=== PATIENT | male | born 1950 | race Caucasian/White ===

== ENCOUNTER → 2017-10-30 16:07 | Outpatient (CLI) | payer MEDICARE, SELFPAY ==
[2017-10-30 16:52] LABS: Abs Immature Grans 0.04 k/cumm (0.0-0.09); Absolute Basophil Count 0.02 k/cumm (0.0-0.2); Absolute Eosinophil Count 0.19 k/cumm (0.0-0.7); Absolute Lymphocyte Count 2.19 k/cumm (1.2-3.4); Absolute Monocyte Count 0.78 k/cumm (0.11-0.7); Absolute Neutrophil Count 4.11 k/cumm (1.2-6.7); Basophils % 0.3; Eosinophils % 2.6; HCT 40.3 % (40.0-50.0); HGB 13.4 g/dL (13.5-17.5); Immature Grans % 0.5; Lymphocytes % 29.9; Mean Corp. HGB Concentration 33.3 g/dL (32.0-36.0); Mean Corpuscular Hemoglobin 30.5 pg (27.0-33.0); Mean Corpuscular Volume 91.8 fL (80-95); Mean Platelet Volume 9.4 fL (8.0-11.0); Monocytes % 10.6; Neutrophils % 56.1; Platelet Count 297 x1000/uL (130-400); RBC 4.39 m/cumm (4.50-6.00); RBC Distribution Width 13.3 % (11.8-14.1); White Blood Cell Count 7.33 k/cumm (4.4-10.8)
[2017-10-30 17:32] LABS: ALT 27 U/L (12-78); AST 24 U/L (15-37); Alkaline Phosphatase 95 U/L (46-116); Anion Gap 7.4 mmol/L (3-11); BUN 24 mg/dL (7-18); Bilirubin, Total 0.3 mg/dL (0.2-1.0); CO2 27.6 mmol/L (21.0-32.0); CREATININE 1.09 mg/dL (0.70-1.30); Calcium 9.3 mg/dL (8.5-10.1); Chloride 102 mmol/L (98-107); Glucose 89 mg/dL (70-100); Potassium 4.2 mmol/L (3.5-5.1); Sodium 137 mmol/L (136-145); TSH (W/Ref FT4) 1.89 uIU/mL (0.358-3.74); Total Protein 8.5 g/dL (6.4-8.2)
== END ==
PROVIDERS: PCP Family Medicine; Visit Provider Internal Medicine
DX: D64.9 Anemia, unspecified (principal); I10 Essential (primary) hypertension; R55 Syncope and collapse; M54.9 Dorsalgia, unspecified; S06.9X9A Unspecified intracranial injury with loss of consciousness of unspecified duration, initial encounter
CPT/HCPCS: 36415; 80053; 84443; 85025

== ENCOUNTER 2019-08-04 10:53 | Emergency (ER) | payer MEDICARE, OTHER, SELFPAY ==
[2019-08-04 10:57] VITALS: BP 159/84; PULSE 155; RESP 16; TEMP 36.6; O2SAT 97
--- NOTE | 2019-08-04 11:00 | DI.CT_ITS ---
EXAM: CT HEAD CERVICAL SPINE WO CLINICAL HISTORY: seizure, fall, trauma, altered. TECHNIQUE: Imaging Protocol: Axial computed tomography images with coronal and sagittal reformatted images were created and reviewed COMPARISON: No exams were available for comparison FINDINGS: Head CT Ventricles and Extra axial spaces: Normal in size and morphology for the patient's age. Hemorrhage: None. Cerebral parenchyma: Mild atrophy. Old infarct in the right temporoparietal region and right posteri or parietal region. No acute infarct is seen.. Midline shift: None. Brainstem/Cerebellum: Normal. Calvarium: Normal. Visualized Paranasal sinuses/Mastoids: Clear. 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 No acute abnormality. FINDINGS: Cervical Spine CT BONES: There is an old fracture seen tract extending transversely through the dens. There is a appar ent fusion between the anterior arch of C1 and the dens. Vertebral body heights are maintained. Deg enerative disc changes and facet degenerative changes are seen. There is some straightening of justin l cervical lordosis. There is no evidence of acute fracture. SOFT TISSUES: No paraspinal hematoma. The airway appears intact. No pneumothorax is seen at the nick g apices. IMPRESSION: Old dens fracture. Degenerative changes. No acute abnormality. RADIATION DOSE DELIVERED: DATA REPOSITORY: All CT scans at this facility are submitted to the National Radiology Data Registry (NRDR) Dose Index Registry (DIR) with the [employer] (ACR). RADIATION OPTIMIZATION: All CT scans at this facility use at least one of these dose optimization te chniques: automated exposure control; mA and/or kV adjustment per patient size (includes targeted exa ms where dose is matched to clinical indication); or iterative reconstruction.
--- NOTE | 2019-08-04 11:05 | ED.GENADUL_ITS ---
Discharge Plan Disposition Patient Disposition: HOME Condition: Stable Discharge Details Chief Complaint: Seizure Clinical Impression: Witnessed seizure-like activity, Elevated serum creatinine, Facial laceration Primary Care Provider: [facility] ED Provider: Javi Reeder Home Meds and New Rx's Prescriptions: New levetiracetam [Keppra] 500 mg tablet 500 mg PO BID Qty: 60 RF: 1 Continued sertraline 25 mg tablet 100 mg PO DAILY RF: 0 olanzapine 5 MG tablet 5 mg PO DAILY Qty: 90 RF: 4 Discharge Instructions Instructions: Skin Adhesive Care (ED), Facial Laceration (ED), Seizures After Traumatic Brain Injury (ED) Additional Instructions: Your serum creatinine was slightly elevated. This indicates kidney injury. Please be sure to stay hydrated and drink plenty of clear fluids. Please take seizure medication as prescribed. No operating heavy machinery or motor vehicles until cleared to do so by your primary care physician or neurologist. Please contact your primary care physician to arrange follow-up. Please follow-up with neurology. Return to the ER for any worsening or new concerning symptoms. Referrals: [facility] [Primary Care Provider] - Giana Miranda MD [ [facility] STAFF PHYSICIAN] - Discharge Data Discharge Date/Time-TO BE ENTERED AT DEPARTURE: 08/04/19 13:30 Medical Decision Making 11:10 --patient was seen immediately on arrival. Patient is a 68-year-old male with history of traumatic brain injury who apparently had seizure activity at grocery store, was found by EMS unresponsive, subsequently now responsive but quite confused. There is signs of trauma on his face with laceration and dried blood. I am concerned about acute life-threatening intracranial traumatic hemorrhage versus postictal state. Plan to obtain stat CT imaging of his head and cervical spine considering unreliable exam and history and may have injured C-spine. Patient is anxious, agitated and uncooperative. I will give Ativan 1 mg IV as an anxiolytic. I reviewed past medical record, clinic visit note from 12/31/2018 that notes history of traumatic brain injury. I called and spoke with physician covering for clinic who notes additional history of hypertension. No known history of seizures. Tetanus is not up-to-date per record. Will give Boostrix. 12:19 --screening ECG was reviewed and interpreted by me: Sinus tachycardia 115 bpm, first-degree AV block with WV interval of 270, no STEMI, no delta wave, no signs of Brugada. Patient reassessed multiple times and seems to be more alert and less confused. Nursing spoke with the patient's sister who notes baseline confusion status post TBI. She also notes remote seizure related to TBI but has not had any seizure in the past couple years. Is not on an antiepileptic. CT of the head was interpreted by radiology: IMPRESSION:Old right temporal and parietal infarcts. No acute abnormality. CT of the cervical spine was interpreted by radiology: IMPRESSION: Old dens fracture. Degenerative changes. No acute abnormality. I called and spoke with Dr. Miranda, neurology, and discussed ED presentation and course. She reviewed head CT and notes findings likely related to prior trauma and and not in typical CVA distribution. She agrees with initiating Keppra and will be happy to see the patient in follow-up in clinic. Labs reviewed and mild anion gap elevation, consistent with seizure. His creatinine is elevated at 1.58, this is increased from prior. This will need to be repeated and followed by PCP. HPI General Mode of arrival: EMS . Date/Time Provider Initiated Documentation: 08/04/19 11:03 . Limitations to Documentation: no limitations . Information obtained by: EMS . HPI Narrative: 68-year-old male presents with EMS after witnessed seizure activity grocery store, initially found by EMS to be unresponsive tachycardic but otherwise hemodynamically stable, he was noted to be more responsive but confused in route to ED. Patient arrives confused. History and review of systems limited secondary to altered mental status. Related Data Home Medications Medication Instructions Recorded Confirmed olanzapine 5 mg PO DAILY #90 tab-cap 01/23/17 12/31/18 sertraline 25 mg tablet 100 mg PO DAILY tab-cap 12/31/18 levetiracetam [Keppra] 500 mg PO BID #60 tab 08/04/19 Previous Rx's Medication Instructions Recorded olanzapine 5 mg PO DAILY #90 tab-cap 01/23/17 levetiracetam [Keppra] 500 mg PO BID #60 tab 08/04/19 Allergies Allergy/AdvReac Type Severity Reaction Status Date / Time No Known Allergies Allergy Unverified 12/31/18 16:02 General Stated Complaint: Seizure SUNDEEP: 3 Review of Systems Unobtainable due to mental condition [facility] Medical History (Updated 08/04/19 @ 13:09 by Javi Reeder MD) Traumatic brain injury (Inactive) Surgical History PROCEDURES GASTRIC LAP BANDING STRESS TEST 02/13/16 Family History Mother Dementia Depression Neoplasm SKIN Father Essential hypertension Heart disease Sister Essential hypertension Dementia Hyperlipidemia Neoplasm SKIN Sister No problems noted. Brother No problems noted. Brother Depression Grandfather Neoplasm LUNG Grandfather No problems noted. Grandmother Dementia Neoplasm SKIN Grandmother Depression Son Depression Son No problems noted. Social History Smoking/Tobacco Use Status: Never Alcohol Intake: never Drug use: Never Substance use type: does not use Exam Const General: uncooperative Orientation: alert and confused Limitations: altered mental status HENMT Mouth: moist mucous membranes Eyes EOM: EOM intact bilaterally Neck Neck: trachea midline and supple Resp Auscultation: clear to auscultation bilaterally, no rales, no rhonchi and no wheezes Cardio Jugular venous pressure: no JVD Rate: tachycardic Rhythm: regular rhythm GI Palpation: soft, not firm, no guarding, no masses, not rigid and nontender Skin Other: Laceration to face, just superior to left upper lip with dried blood on face Neuro General: patient alert, patient awake and tone normal Cognition: abnormal cognition Speech: other (repetitive) Motor: muscle tone normal throughout Extrem General: no edema Psych Appearance: grossly normal Mental Status: mental status grossly normal Speech and Movement: speech and movement normal Course Vital Signs Vital signs: Vital Signs Temperature 36.6 C 08/04/19 10:57 Pulse 155 H 08/04/19 10:57 Respiratory Rate 16 08/04/19 10:57 Blood Pressure 159/84 H 08/04/19 10:57 Pulse Oximetry 97 08/04/19 10:57 Temperature 36.6 C 08/04/19 10:57 Temperature Source Tympanic 08/04/19 10:57 Pulse 155 H 08/04/19 10:57 Respiratory Rate 16 08/04/19 10:57 Respiratory Effort Non-Labored 08/04/19 11:01 Blood Pressure 159/84 H 08/04/19 10:57 Blood Pressure Position Sitting 08/04/19 10:57 Pulse Oximetry 97 08/04/19 10:57 Oxygen Delivery Method Room Air 08/04/19 10:57 Oxygen Flow Rate 0 08/04/19 10:57 Pain Level 0 08/04/19 10:57
[2019-08-04 11:16] LABS: Abs Immature Grans 0.12 k/cumm (0.0-0.09); Absolute Basophil Count 0.03 k/cumm (0.0-0.2); Absolute Eosinophil Count 0.27 k/cumm (0.0-0.7); Absolute Lymphocyte Count 4.25 k/cumm (1.2-3.4); Absolute Monocyte Count 0.87 k/cumm (0.11-0.7); Absolute Neutrophil Count 5.13 k/cumm (1.2-6.7); Basophils % 0.3; Eosinophils % 2.5; HCT 40.7 % (40.0-50.0); HGB 13.8 g/dL (13.5-17.5); Immature Grans % 1.1 %; Lymphocytes % 39.8; Mean Corp. HGB Concentration 33.9 g/dL (32.0-36.0); Mean Corpuscular Hemoglobin 31.3 pg (27.0-33.0); Mean Corpuscular Volume 92.3 fL (80-95); Mean Platelet Volume 9.3 fL (8.0-11.0); Monocytes % 8.2; Neutrophils % 48.1; Platelet Count 342 x1000/uL (130-400); RBC 4.41 m/cumm (4.50-6.00); RBC Distribution Width 14.2 % (11.8-14.1); White Blood Cell Count 10.67 k/cumm (4.4-10.8)
[2019-08-04] MEDS: LORazepam 2 MG/ML VIAL 1 MG IVP (11:17)
[2019-08-04 11:29] LABS: ALT 36 U/L (16-63); AST 32 U/L (15-37); Albumin 3.8 g/dL (3.4-5.0); Alkaline Phosphatase 106 U/L (46-116); Anion Gap 18.4 mmol/L (3-11); BUN 21 mg/dL (7-18); Bilirubin, Total 0.4 mg/dL (0.2-1.0); CO2 19.6 mmol/L (21.0-32.0); CREATININE 1.58 mg/dL (0.70-1.30); Calcium 9.2 mg/dL (8.5-10.1); Chloride 101 mmol/L (98-107); Estimated GFR 43.83 (mL/min/1.73m2); Glucose 143 mg/dL (74-106); Magnesium 2.2 mg/dL (1.8-2.4); Potassium 3.6 mmol/L (3.5-5.1); Sodium 139 mmol/L (136-145); Total Protein 8.7 g/dL (6.4-8.2)
[2019-08-04 11:46] LABS: ETHANOL BLOOD < 3.0 mg/dL (<3)
[2019-08-04 12:05] LABS: *AMPHETAMINES SCREEN URINE Negative (Negative); *BARBITURATES SCREEN URINE Negative (Negative); *BENZODIAZEPINES SCREEN URINE Negative (Negative); Cannabinoids THC Negative (Negative); Cocaine Screen,Urine Negative (Negative); METHADONE URINE SCREEN Negative (Negative); OPIATES URINE SCREEN Negative (Negative)
[2019-08-04 12:06] LABS: Tricyclic Antidepressants Negative (Negative)
[2019-08-04] MEDS: levETIRAcetam 1,000 MG in Normal Saline 100 ML 400 MG IVPB (12:06)
[2019-08-04 13:29] VITALS: BP 103/73; PULSE 93; RESP 20; TEMP 36.6; O2SAT 93
--- NOTE | 2019-08-04 15:39 | NUR.NOTE ---
Nursing Note: Referral faxed to PCP for follow up. Patricia Cotto.
--- NOTE | 2019-08-05 11:40 | PDOC.ERCMACT ---
- If Service Date Differs Date of service: 08/05/19 Time of Service: 11:40 Care Management Activity Note At the request of ED provider, CM coordinates a referral to [facility] neurology.
== END 2019-08-04 13:30 | disposition home or self-care (01) ==
PROVIDERS: Emergency Provider Student in an Organized Health Care Education/Training Program; PCP Family Medicine
DX: S01.81XA Laceration without foreign body of other part of head, initial encounter (principal); W22.09XA Striking against other stationary object, initial encounter; R56.1 Post traumatic seizures; Z87.820 Personal history of traumatic brain injury; R94.4 Abnormal results of kidney function studies; I10 Essential (primary) hypertension
CPT/HCPCS: 36415; 80053; 80307; 90471; 93005; 96365; 96375; 99285; 70450; 72125; 80320; 83735; 85025; 93010; J1953; J2060

== ENCOUNTER → 2019-08-18 13:41 | Outpatient (BNVA) | payer MEDICARE, OTHER, SELFPAY | PROVIDERS: PCP Family Medicine; Referring Provider Family Medicine; Visit Provider Psychiatry & Neurology Neurology | DX: R56.9 Unspecified convulsions (principal); Z87.820 Personal history of traumatic brain injury; I10 Essential (primary) hypertension | CPT/HCPCS: 99204; 99215 ==

== ENCOUNTER 2021-08-12 17:45 | Emergency (ER) | payer MEDICARE, MEDICAID, SELFPAY ==
[2021-08-12] VITALS (29 sets, daily range): BP systolic 94–115; BP diastolic 56–82; PULSE 70–90; RESP 16–30; TEMP 36.5; O2SAT 92–98
--- NOTE | 2021-08-12 17:45 | RT.EKG_ITS ---
APPROVED REPORT Exam: Resting ECG Reason for Exam: hypotension Patient Location: E HR:81 bpm ECG Measurements Heart Rate [address] 337 P 27 QRSd 91 QRS 60 QT 360 T 18 QTc 417 Conclusion Sinus rhythm...normal P axis, V-rate 60- [address] interval...CT >220, V-rate 50- 90 Probable left atrial enlargement...P >50mS, <-0.10mV V1 sinus rhythm, first degree block, normal axis, non ichemic
--- NOTE | 2021-08-12 18:45 | DI.CT_ITS ---
Exam(s) CT HEAD WO EXAM: CT HEAD WO CLINICAL HISTORY: syncope, LOC. TECHNIQUE: Imaging Protocol: Axial computed tomography images with coronal and sagittal reformatted images were created and reviewed COMPARISON: CT CT HEAD CERVICAL SPINE WO from 08/04/2019 FINDINGS: There are no acute skull fractures nor fluid the visualized paranasal sinuses. There is surgical ma terial in the anterior wall of the right maxillary sinus as well is in the superior lateral wall of t he orbit. No acute orbital fractures. There is no evidence of intracranial hemorrhage, mass effect, or shift of midline structures. There are no extra-axial fluid collections. The ventricles are not enlarged or shifted and there is no blo od within the ventricular system nor within the basal cisterns. Previously described nonacute infarct in the right temporoparietal region again noted. No obvious ne w acute infarcts evident. IMPRESSION: Non acute right temporal-parietal infarcts. No obvious acute infarcts. If clinically indicated follow-up MRI with diffusion imaging can be performed RADIATION DOSE DELIVERED: 818.64mGy.cm Total DLP DATA REPOSITORY: All CT scans at this facility are submitted to the National Radiology Data Registry (NRDR) Dose Index Registry (DIR) with the [employer] (ACR). RADIATION OPTIMIZATION: All CT scans at this facility use at least one of these dose optimization te chniques: automated exposure control; mA and/or kV adjustment per patient size (includes targeted exa ms where dose is matched to clinical indication); or iterative reconstruction.
--- NOTE | 2021-08-12 18:53 | DI.RAD_ITS ---
Exam(s) XR PORTABLE CHEST AP EXAM: XR PORTABLE CHEST AP CLINICAL HISTORY: syncope. TECHNIQUE: 2D digital imaging was performed. COMPARISON: No exams were available for comparison FINDINGS: Single AP portable view. Heart size is upper normal. The mediastinum is not widened. Lungs are clear. No infiltrates nor obvious pleural effusions. Healed right 5th rib fracture noted. IMPRESSION: No acute pulmonary findings on this single AP portable view of the chest. DATA REPOSITORY: RADIATION DOSE DELIVERED: All CT scans at this facility use at least one of these dose optimization techniques: automated exposure control; mA and/or kV adjustment per patient size (includes targeted e xams where dose is matched to clinical indication); or iterative reconstruction.
--- NOTE | 2021-08-12 19:08 | ED.GENADUL_ITS ---
Discharge Plan Disposition Patient Disposition: HOME Condition: Improving Discharge Details Chief Complaint: Dizzy/Sync Clinical Impression: Fall, First degree heart block Primary Care Provider: [facility] ED Provider: Jignesh Redman Home Meds and New Rx's Prescriptions: No Action multivitamin Tablet 1 tab PO DAILY levetiracetam [Keppra] 500 mg tablet 500 mg PO BID Qty: 60 1RF olanzapine 5 mg tablet 5 mg PO DAILY Qty: 90 4RF sertraline 100 mg tablet 100 mg PO DAILY Qty: 90 3RF methylphenidate HCl [Ritalin] 5 mg tablet 5 mg PO DAILY MDD 1 tab Qty: 30 0RF cholecalciferol (vitamin D3) [Vitamin D3] 125 mcg (5,000 unit) Tablet 5,000 unit PO DAILY vitamin E 400 unit Tablet 400 unit PO DAILY Discharge Instructions Instructions: Heart Block (ED) Additional Instructions: Please be seen by your primary care doctor, please follow-up with cardiology, please return to the emergency department for any worsening symptoms. Medical Decision Making 70-year-old male denies physical history endorses loss of balance/dizziness and possible syncope in the shower, fell backwards unclear LOC, confusion after event with return to baseline status per , no chest pain or shortness of breath no external signs of trauma, patient is alert and oriented moving all extremities out of her strength upper and lower extremities, speech intact, EKG showing first-degree heart block, nonischemic, did not eat much today, consider dehydration versus electrolyte abnormality versus relative hypoglycemia versus must consider ACS versus unlikely PE versus less likely stroke. Given age and presentation will obtain labs and imaging fluids close reassessment 21: 12 patient resting comfortably no acute distress labs and imaging unremarkable. Feeling better fluids and rest. First-degree heart block noted on EKG will be given cardiology referral HPI General Date/Time Provider Initiated Documentation: 08/12/21 18:43 . HPI Narrative: 70-year-old male denies past medical history endorses falling in the shower, daughter states he was get a pass out lost his balance fell backwards hit his head unclear whether he lost of consciousness, no chest pain or shortness of breath, patient did eat late this morning, only had some milk. Feels back to normal at this time. Related Data Home Medications Medication Instructions Recorded Confirmed multivitamin 1 tab PO DAILY 08/18/19 08/12/21 levetiracetam 500 mg tablet 500 mg PO BID #60 tabs 11/09/20 08/12/21 (Keppra) olanzapine 5 mg tablet 5 mg PO DAILY #90 tab-caps 11/09/20 08/12/21 sertraline 100 mg tablet 100 mg PO DAILY #90 tabs 11/09/20 08/12/21 methylphenidate HCl 5 mg tablet 5 mg PO DAILY #30 tabs 03/14/21 08/12/21 (Ritalin) cholecalciferol (vitamin D3) 125 5,000 unit PO DAILY 08/12/21 08/12/21 mcg (5,000 unit) tablet (Vitamin D3) vitamin E 400 unit tablet 400 unit PO DAILY 08/12/21 08/12/21 Previous Rx's Medication Instructions Recorded levetiracetam 500 mg tablet 500 mg PO BID #60 tabs 11/09/20 (Keppra) olanzapine 5 mg tablet 5 mg PO DAILY #90 tab-caps 11/09/20 sertraline 100 mg tablet 100 mg PO DAILY #90 tabs 11/09/20 methylphenidate HCl 5 mg tablet 5 mg PO DAILY #30 tabs 03/14/21 (Ritalin) Allergies Allergy/AdvReac Type Severity Reaction Status Date / Time No Known Allergies Allergy Unverified 08/12/21 18:01 General Stated Complaint: Dizzy/Sync SUNDEEP: 3 Review of Systems Narrative: Review of Systems Constitutional: negative Eyes: negative ENT: negative Cardiovascular: Possible syncope Respiratory: negative Gastrointestinal: negative : negative Musculoskeletal: negative Skin: negative Neurologic: Dizziness Psych: negative PFSH All Active Problems (Updated 08/12/21 @ 21:14 by Jignesh Redman MD) Fall (Acute) First degree heart block (Acute) Traumatic brain injury (Acute) Seizure (Acute) Medical History (Updated 08/12/21 @ 21:14 by Jignesh Redman MD) Depression History of suicidal ideation Hypertension Surgical History PROCEDURES GASTRIC LAP BANDING STRESS TEST 02/13/16 Family History Mother Dementia Depression Neoplasm SKIN Father Essential hypertension Heart disease Sister Essential hypertension Dementia Hyperlipidemia Neoplasm SKIN Sister No problems noted. Brother No problems noted. Brother Depression Grandfather Neoplasm LUNG Grandfather No problems noted. Grandmother Dementia Neoplasm SKIN Grandmother Depression Son Depression Son No problems noted. 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 Seatbelt use: always Do you feel safe at home: Yes Do you feel safe in your relationship?: Yes Exam Narrative Exam Narrative: Physical Examination General: alert, awake, cooperative, resting comfortably, no acute distress HEENT: normocephalic, atraumatic; PERRL, EOM intact, conjunctiva normal; no nasal discharge; moist mucous membranes, oral and pharyngeal mucosa normal, tolerating secretions Neck: supple, trachea midline; full ROM Chest: normal to inspection Respiratory: normal respiratory effort, speaking in full sentences, clear to auscultation, no wheezing, rales or rhonchi Cardiac: regular rate, regular rhythm, S1S2 intact, no murmurs rubs or gallops GI: abdomen soft, non-tender, non-distended; no palpable mass or hepatosplenomegaly Skin: no lesions, rashes or trauma appreciated Neuro: AAOx3, normal speech, moving all extremities; 5 out of 5 strength upper and lower extremities, cranial nerves II through XII intact, normal speech Extremities: Moving all extremities pelvis stable, no signs of trauma Psych: Appropriate mood and affect Course Vital Signs Vital signs: Vital Signs Temperature 36.5 C 08/12/21 17:47 Pulse 82 08/12/21 17:47 Respiratory Rate 20 08/12/21 17:47 Blood Pressure 106/75 08/12/21 17:47 Pulse Oximetry 95 08/12/21 17:47 Temperature 36.5 C 08/12/21 17:47 Temperature Source Temporal Artery Scan 08/12/21 17:47 Pulse 82 08/12/21 17:47 Respiratory Rate 20 08/12/21 17:47 Respiratory Effort 08/12/21 17:54 Blood Pressure 106/75 08/12/21 17:47 Blood Pressure Position Sitting 08/12/21 17:47 Pulse Oximetry 95 08/12/21 17:47 Oxygen Delivery Method Room Air 08/12/21 17:47 Oxygen Flow Rate 0 08/12/21 17:47 Pain Level 0 08/12/21 17:47
[2021-08-12 19:49] LABS: Abs Immature Grans 0.12 10^3/uL (0.0-0.06); Absolute Basophil Count 0.03 10^3/uL (0.0-0.2); Absolute Monocyte Count 0.63 10^3/uL (0.1-0.8); Absolute Neutrophil Count 8.16 10^3/uL (1.2-6.7); Basophils % 0.3; Eosinophils % 2.8; HCT 38.4 % (40.0-50.0); HGB 12.9 g/dL (13.5-17.5); Immature Grans % 1.1; Lymphocytes % 13.2; MCH 30.8 pg (27.0-33.0); MCHC 33.6 % (32.0-36.0); MCV 92 fL (80-95); MPV 10.2 fL (8.0-11.0); Monocytes % 5.9; Neutrophils % 76.7; Platelet Count 245 10^3/uL (130-400); RBC 4.19 10^6/uL (4.36-5.78); RDW 13.3 % (11.8-14.1); RDW-SD 44.8 fL; WBC 10.64 10^3/uL (4.4-10.8)
[2021-08-12 20:05] LABS: ALT 30 U/L (16-63); AST 35 U/L (15-37); Albumin 3.1 g/dL (3.4-5.0); Alkaline Phosphatase 70 U/L (46-116); Anion Gap 7.4 mmol/L (3-11); BUN 17 mg/dL (7-18); Bilirubin, Total 0.3 mg/dL (0.2-1.0); CO2 24.6 mmol/L (21.0-32.0); CREATININE 1.2 mg/dL (0.70-1.30); Calcium 8.5 mg/dL (8.5-10.1); Chloride 108 mmol/L (98-107); Estimated GFR 59.86 (mL/min/1.73m2); Glucose 99 mg/dL (74-106); Potassium 4.9 mmol/L (3.5-5.1); Sodium 140 mmol/L (136-145); Total Protein 7.5 g/dL (6.4-8.2); Troponin I < 50 ng/L (<or=60)
--- NOTE | 2021-08-12 20:53 | DI.VRAD_ITS ---
PROCEDURE INFORMATION: Exam: CT Head Without Contrast Exam date and time: 08/12/2021 8:21 PM Age: 70 years old Clinical indication: Other: Syncope, loc; Patient HX: Syncope, loc TECHNIQUE: Imaging protocol: Computed tomography of the head without contrast. Radiation optimization: All CT scans at this facility use at least one of these dose optimization techniques: automated exposure control; mA and/or kV adjustment per patient size (includes targeted exams where dose is matched to clinical indication); or iterative reconstruction. COMPARISON: CT HEAD CERVICAL SPINE WO 08/04/2019 11:17 AM FINDINGS: Brain: No acute intracranial hemorrhage, mass-effect, midline shift, or extra-axial collection is seen. There are small old right frontoparietal infarcts, image 35 of series 2, also seen on the prior exam. Otherwise, the parson-white matter differentiation appears preserved. There is symmetric parenchymal volume loss. Cerebral ventricles: The ventricular system and basilar cisterns appear appropriate in size and configuration given the degree of parenchymal volume loss. Paranasal sinuses: The visualized paranasal sinuses appear well-aerated. Mastoid air cells: The mastoid air cells appear well-aerated. Auditory system: The middle ear cavities appear clear. Vasculature: There is atherosclerotic calcification within the intracranial portion of the internal carotid arteries bilaterally. Bones/joints: The bony calvarium appears intact. No depressed skull fracture is seen. There is surgical material transfixing old right orbital and maxillary wall fractures. Soft tissues: No significant scalp lesion is seen. IMPRESSION: 1. No acute intracranial abnormality seen. 2. Small old right frontotemporal infarcts. Dictated and Authenticated by: Virgilio Mari MD. Ordering:RIVER Egan MD
--- NOTE | 2021-08-12 20:57 | DI.VRAD_ITS ---
PROCEDURE INFORMATION: Exam: XR Chest Exam date and time: 08/12/2021 8:13 PM Age: 70 years old Clinical indication: Other: Syncope TECHNIQUE: Imaging protocol: XR of the chest. Views: 1 view. COMPARISON: CT HEAD CERVICAL SPINE WO 08/04/2019 11:17 AM FINDINGS: Limitations: Patient positioning is lordotic. Tubes, catheters and devices: There is a lap band device projecting in the region of the gastroesophageal junction. Lungs: No pulmonary consolidation is seen. Pleural spaces: No pleural effusion or pneumothorax is demonstrated. Heart/Mediastinum: Heart size is normal. Bones/joints: There is an old right posterior 5th rib fracture. IMPRESSION: No active disease is seen in the chest. Dictated and Authenticated by: Virgilio Mari MD. Ordering:RIVER Egan MD
== END 2021-08-12 21:24 | disposition home or self-care (01) ==
LOC: ER 21:20
PROVIDERS: Emergency Provider Emergency Medicine; PCP Family Medicine
DX: I44.0 Atrioventricular block, first degree (principal); R55 Syncope and collapse; S09.8XXA Other specified injuries of head, initial encounter; W18.30XA Fall on same level, unspecified, initial encounter; I95.9 Hypotension, unspecified
CPT/HCPCS: 36415; 80053; 93005; 99285; 70450; 71045; 84484; 85025; 93010; 99284

== ENCOUNTER 2021-10-06 14:58 | Emergency (ER) | payer MEDICARE, MEDICAID, SELFPAY ==
[2021-10-06 15:02] VITALS: BP 128/86; PULSE 92; RESP 14; TEMP 36.8; O2SAT 98
--- NOTE | 2021-10-06 15:15 | ED.GENADUL_ITS ---
Discharge Plan Disposition Patient Disposition: HOME Condition: Stable Discharge Details Clinical Impression: Depression, Medication refill Primary [facility] Provider: [facility] ED Provider: Mona Roca Home Meds and New Rx's Prescriptions: New levetiracetam [Keppra] 500 mg tablet 500 mg PO BID Qty: 60 0RF methylphenidate HCl [Ritalin] 5 mg tablet 5 mg PO DAILY Qty: 30 0RF olanzapine 5 mg tablet 5 mg PO DAILY Qty: 30 0RF Continued multivitamin Tablet 1 tab PO DAILY olanzapine 5 mg tablet 5 mg PO DAILY Qty: 90 4RF methylphenidate HCl [Ritalin] 5 mg tablet 5 mg PO DAILY MDD 1 tab Qty: 30 0RF levetiracetam [Keppra] 500 mg tablet 500 mg PO BID Qty: 60 1RF sertraline 100 mg tablet 100 mg PO DAILY Qty: 90 3RF cholecalciferol (vitamin D3) [Vitamin D3] 125 mcg (5,000 unit) Tablet 5,000 unit PO DAILY vitamin E 400 unit Tablet 400 unit PO DAILY No Action sertraline 100 mg tablet 150 mg PO DAILY Qty: 135 1RF Discharge Instructions Instructions: Depression (ED) Additional Instructions: Alejandrina with [facility] human services will follow-up with you tomorrow morning for reevaluation and to discuss your treatment plan for your depression. Prescription refills for your medications have been sent electronically to your pharmacy. You have been placed on care management's list to arrange for a follow-up appointment with your primary care doctor for reevaluation in the next 1-2 weeks. Return immediately to the emergency department if you develop any worsening or new concerning symptoms. Discharge Data Discharge Date/Time-TO BE ENTERED AT DEPARTURE: 10/06/21 16:40 Discharge Physician: Mona Roca Medical Decision Making 71-year-old male with a history of hypertension, depression and TBI presents with a complaint of I don't want to live anymore. No previous history of suicide attempt. He states he has previously thought of overdosing on pills but currently denies a plan for suicide. Patient appears tearful but able to provide history. He appears comfortable and nontoxic. He has no acute physical complaints. Nephew states that he has been eating well but not sleeping well lately. There is no report of fever. Nephew states that patient has been more depressed since leaving his son and granddaughter in [place] where he stayed with them for 6 months. Nephew also reports that patient has not been taking regular medications lately. Patient states he has not seen his primary care doctor for some time . Patient medically cleared from my perspective. History and presentation does not appear consistent with an acute organic cause at this time. Patient evaluat ed by mental health and cleared for discharge to home. Patient does not meet any criteria for acute psychiatric hospitalization and will attempt outpatient treatment at this time. Do not see indication for labs or imaging at this time. Alejandrina with mental health will follow up with patient tomorrow morning [facility] plan for referral for medication management. Patient and sister requested refills of his regular medications which were sent electronically to his pharmacy. Patient placed on care management's list to arrange for a follow-up appointment with his primary care doctor for reevaluation. Usual and customary return precautions given prior to discharge. Medical Records Medical records reviewed: Yes I reviewed the patient's medical records. HPI General Mode of arrival: ambulatory . Date/Time Provider Initiated Documentation: 10/06/21 14:58 . Limitations to Documentation: no limitations . Information obtained by: patient and family . HPI Narrative: Pt is a 71yo M with a history of hypertension, depression who presents to the ED stating I don't want to live anymore. Patient initially denied any specific plan but when inquired, he states I could not take some pills. He denies any previous history of suicide attempt. Patient presents with his nephew at bedside. Patient lives with his sister and nephew. Nephew states that patient was staying with his son and granddaughter in [facility] for 6 months and pt had been sad leaving them and moving back here. Patient states she has not seen his primary care doctor for some time . Nephew states that patient has been eating well but not sleeping well lately. Nephew states that patient has had ongoing depression for some time and felt he needed evaluation and information for his depression. Patient denies any acute physical complaints. He denies fever, headache, chest pain, shortness of breath, abdominal pain, nausea, vomiting, diarrhea or urinary symptoms. Related Data Home Medications Medication Instructions Recorded Confirmed multivitamin 1 tab PO DAILY 08/18/19 10/08/21 olanzapine 5 mg tablet 5 mg PO DAILY #90 tab-caps 11/09/20 10/08/21 methylphenidate HCl 5 mg tablet 5 mg PO DAILY #30 tabs 03/14/21 10/08/21 (Ritalin) cholecalciferol (vitamin D3) 125 5,000 unit PO DAILY 08/12/21 10/08/21 mcg (5,000 unit) tablet (Vitamin D3) vitamin E 400 unit tablet 400 unit PO DAILY 08/12/21 10/08/21 levetiracetam 500 mg tablet 500 mg PO BID #60 tabs 08/16/21 10/08/21 (Keppra) sertraline 100 mg tablet 100 mg PO DAILY #90 tabs 08/16/21 10/08/21 levetiracetam 500 mg tablet 500 mg PO BID #60 tabs 10/06/21 10/08/21 (Keppra) methylphenidate HCl 5 mg tablet 5 mg PO DAILY #30 tabs 10/06/21 10/08/21 (Ritalin) olanzapine 5 mg tablet 5 mg PO DAILY #30 tabs 10/06/21 10/08/21 sertraline 100 mg tablet 150 mg PO DAILY #135 tabs 10/08/21 10/08/21 Previous Rx's Medication Instructions Recorded olanzapine 5 mg tablet 5 mg PO DAILY #90 tab-caps 11/09/20 methylphenidate HCl 5 mg tablet 5 mg PO DAILY #30 tabs 03/14/21 (Ritalin) levetiracetam 500 mg tablet 500 mg PO BID #60 tabs 08/16/21 (Keppra) sertraline 100 mg tablet 100 mg PO DAILY #90 tabs 08/16/21 levetiracetam 500 mg tablet 500 mg PO BID #60 tabs 10/06/21 (Keppra) methylphenidate HCl 5 mg tablet 5 mg PO DAILY #30 tabs 10/06/21 (Ritalin) olanzapine 5 mg tablet 5 mg PO DAILY #30 tabs 10/06/21 sertraline 100 mg tablet 150 mg PO DAILY #135 tabs 10/08/21 Allergies Allergy/AdvReac Type Severity Reaction Status Date / Time No Known Allergies Allergy Unverified 10/06/21 15:06 General Stated Complaint: PsychEval SUNDEEP: 2 Review of Systems All systems reviewed & are unremarkable except as noted in HPI and below Constitutional Constitutional: Denies chills, Denies excessive sweating, Denies fatigue, Denies fever(s), Denies weakness and Denies weight loss Eyes Eyes: Reports system reviewed and no additional complaints, except as documented and Denies blurry vision ENT Ears, Nose, Mouth, and Throat: Denies vertigo, Denies dizziness, Denies otalgia, Denies nasal congestion, Denies sore throat and Denies throat swelling Cardiovascular Cardiovascular: Denies chest pain, Denies syncope, Denies rapid heart rate and Denies dyspnea Respiratory Respiratory: Denies chest congestion, Denies cough, Denies pain on inspiration and Denies dyspnea Gastrointestinal Gastrointestinal: Denies abdominal pain, Denies diarrhea and Denies vomiting Genitourinary Genitourinary: Denies hematuria, Denies dysuria and Denies flank pain Musculoskeletal Musculoskeletal: Denies back pain and Denies joint swelling Integumentary/Breasts Skin/Breast: Denies lesions and Denies rash Neurologic Neurologic: Denies behavioral changes, Denies confusion, Denies vertigo, Denies dizziness, Denies syncope, Denies localized weakness and Denies weakness Psychiatric Psychiatric: Denies behavioral changes, Denies confusion, Denies depression and Reports suicidal ideation Endocrine Endocrine: Denies excessive sweating and Denies fatigue Hematologic/Lymphatic Hematologic/Lymphatic: Denies easy bruising and Denies lymphadenopathy Allergic/Immunologic Allergic/Immunologic: Denies throat swelling PFSH All Active Problems (Updated 10/06/21 @ 16:23 by Mona Roca DO) Depression (Chronic) Medication refill (Acute) Traumatic brain injury (Acute) Seizure (Acute) Medical History (Updated 10/06/21 @ 16:23 by Mona Roca DO) Depression History of suicidal ideation Hypertension Surgical History PROCEDURES GASTRIC LAP BANDING STRESS TEST 02/13/16 Family History Mother Dementia Depression Neoplasm SKIN Father Essential hypertension Heart disease Sister Essential hypertension Dementia Hyperlipidemia Neoplasm SKIN Sister No problems noted. Brother No problems noted. Brother Depression Grandfather Neoplasm LUNG Grandfather No problems noted. Grandmother Dementia Neoplasm SKIN Grandmother Depression Son Depression Son No problems noted. 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 Seatbelt use: always Do you feel safe at home: Yes Do you feel safe in your relationship?: Yes Exam Const General: cooperative and no acute distress Orientation: alert, awake and oriented x3 HENMT Head: normal to inspection Ears: hearing grossly normal bilaterally, external ears normal and TM's normal bilaterally General nose exam: external nose normal Face and sinus: normal facial exam Mouth: oral mucosae normal Teeth and gingiva: dentition normal Throat: posterior oropharynx normal Eyes General: appearance normal, both eyes and all related structures Eyelids: eyelids normal Pupils: PERRL EOM: EOM intact bilaterally Neck Neck: normal visual inspection Lymphatic: no lymphadenopathy noted Chest Chest: normal inspection of the chest Resp Effort & Inspection: normal respiratory effort and able to speak in complete sentences Auscultation: clear to auscultation bilaterally Cardio Rate: regular rate Rhythm: regular rhythm GI Inspection: normal to inspection Palpation: soft, not firm, no guarding, no hepatosplenomegaly, no masses and nontender Auscultation: normal bowel sounds Skin General skin exam: no rashes or lesions noted Neuro General: patient alert and patient awake Cognition: normal cognition Speech: speech normal Gait: normal gait Motor: muscle tone normal throughout Sensory Exam: no sensory deficits noted Extrem General: normal to inspection, full ROM and capillary refill normal Psych Appearance: grossly normal Mental Status: mental status grossly normal Speech and Movement: speech and movement normal Affect: sad Thought Process: normal Course Vital Signs Vital signs: Vital Signs Temperature 98.2 F 10/06/21 15:02 Pulse 92 H 10/06/21 15:02 Respiratory Rate 14 10/06/21 15:02 Blood Pressure 128/86 10/06/21 15:02 Pulse Oximetry 98 10/06/21 15:02 Temperature 98.2 F 10/06/21 15:02 Pulse 92 H 10/06/21 15:02 Respiratory Rate 14 10/06/21 15:02 Blood Pressure 128/86 10/06/21 15:02 Pulse Oximetry 98 10/06/21 15:02 Oxygen Delivery Method Room Air 10/06/21 15:02 Oxygen Flow Rate 0 10/06/21 15:02 Pain Level 0 10/06/21 15:02
--- NOTE | 2021-10-06 16:34 | NUR.NOTE ---
Nursing Note: Faxed to PCP [facility]; recheck depression, 1 to 2 weeks.
== END 2021-10-06 16:40 | disposition home or self-care (01) ==
PROVIDERS: Emergency Provider Physician Assistant; PCP Family Medicine
DX: F32.A Depression, unspecified (principal); I10 Essential (primary) hypertension; Z76.0 Encounter for issue of repeat prescription; Z87.820 Personal history of traumatic brain injury
CPT/HCPCS: 80053; 80307; 87635; 99283; 80320; 84443; 85025; 99284

== ENCOUNTER 2022-03-07 15:13 | Emergency (ER) | payer MEDICARE, MEDICAID, SELFPAY ==
[2022-03-07] VITALS (70 sets, daily range): BP systolic 77–123; BP diastolic 37–88; PULSE 93–120; RESP 10–43; TEMP 36.7; O2SAT 88–98
--- NOTE | 2022-03-07 15:18 | ED.GENADUL_ITS ---
Discharge Plan Discharge Details Chief Complaint: Seizure Primary Care Provider: [facility] Provider: Roge Mallory Home Meds and New Rx's Prescriptions: No Action multivitamin Tablet 1 tab PO DAILY sertraline 100 mg tablet 150 mg PO DAILY Qty: 135 1RF sertraline 100 mg tablet 200 mg PO DAILY Qty: 180 3RF methylphenidate HCl [Ritalin] 5 mg tablet 5 mg PO DAILY MDD 1 tab Qty: 30 0RF levetiracetam [Keppra] 500 mg tablet 500 mg PO BID Qty: 180 3RF olanzapine 5 mg tablet 5 mg PO DAILY Qty: 90 4RF methylphenidate HCl [Ritalin] 10 mg tablet 10 mg PO QAM MDD 1 tab Qty: 28 0RF cholecalciferol (vitamin D3) [Vitamin D3] 125 mcg (5,000 unit) Tablet 5,000 unit PO DAILY vitamin E 400 unit Tablet 400 unit PO DAILY levetiracetam [Keppra] 500 mg tablet 500 mg PO BID Qty: 60 0RF olanzapine 5 mg tablet 5 mg PO DAILY Qty: 30 0RF methylphenidate HCl 5 mg tablet Label Comments: TAKE ONE TABLET BY MOUTH EVERY DAY Medical Decision Making Patient here status post seizure with history of same. Unclear whether he is taking his Keppra twice daily as he is supposed to or not. He is a little tachypneic. He is noted to have room air saturations in the high 80s. He is not a former smoker. He has not been ill. We will go ahead and load with Keppra since it is unclear whether he is taking it or not. We will initiate work-up for any reasons for decreased seizure threshold as well as investigating his low O2 saturation. Patient has remained stable in the ED. His room air saturations appear to be bouncing between 88 and 95. Continues to be tachypneic and mildly tachycardic. His laboratory studies show a white count of 13.9 with a normal hemoglobin. Chemistries show normal electrolytes with some mild renal insufficiency. Liver function is normal. Urinalysis negative for infection. Chest x-ray unremarkable per my read with radiology over read of normal as well. His nasal swab is negative. His D-dimer is elevated but is normal when age-adjusted. Since no other obvious cause of tachycardia, tachypnea, oxygen saturation problems we will proceed with CTA of the chest. Patient CTA of chest is inconclusive with possible PE versus motion artifact per radiology preliminary read. Patient has really had no change in status. Unable to obtain ultrasound tonight. Unable to obtain VQ scan over the weekend. Given persistent tachycardia and tachypnea I am going to cover with Lovenox for the possibility of PE. I will hydrate him overnight. Plan repeat CTA of chest if over read of tonight's CTA remains inconclusive. Daily medications ordered. Seizure precautions in place. Medical Records Medical records reviewed: Yes I reviewed the patient's medical records. Medical records narrative: Last few office visits were for behavioral health and depression. Lab Data Lab results reviewed: Yes I reviewed the patient's lab results. Sign Out Yes HPI General Mode of arrival: EMS . Date/Time Provider Initiated Documentation: 03/07/22 15:18 . Limitations to Documentation: no limitations . Information obtained by: patient, family and EMS . HPI Narrative: Patient presents to ED by ambulance after a generalized seizure at home. Patient has history of seizures and is supposed to be on Keppra 500 twice a day. Not clear whether he is taking this or not. He lives with his sister who witnessed the seizure. She reports that he has not missed any medications. He has been well as of late with no complaints of fever, headache, cough, chest pain, shortness of breath, vomiting, diarrhea, urinary symptoms. Patient was postictal for EMS and is slowly coming back to baseline. Seems mildly confused here in the ED but currently is denying any headache, neck pain, extremity pain, chest pain, shortness of breath. He is reporting last seizure being maybe 5 or 6 months ago. Related Data Home Medications Medication Instructions Recorded Confirmed multivitamin 1 tab PO DAILY 08/18/19 01/10/22 methylphenidate HCl 5 mg tablet 5 mg PO DAILY #30 tabs 03/14/21 01/10/22 (Ritalin) cholecalciferol (vitamin D3) 125 5,000 unit PO DAILY 08/12/21 01/10/22 mcg (5,000 unit) tablet (Vitamin D3) vitamin E 400 unit tablet 400 unit PO DAILY 08/12/21 01/10/22 levetiracetam 500 mg tablet 500 mg PO BID #60 tabs 10/06/21 01/10/22 (Keppra) olanzapine 5 mg tablet 5 mg PO DAILY #30 tabs 10/06/21 01/10/22 sertraline 100 mg tablet 150 mg PO DAILY #135 tabs 10/08/21 03/07/22 levetiracetam 500 mg tablet 500 mg PO BID #180 tabs 11/13/21 03/07/22 (Keppra) sertraline 100 mg tablet 200 mg PO DAILY #180 tabs 11/19/21 01/10/22 olanzapine 5 mg tablet 5 mg PO DAILY #90 tab-caps 12/07/21 03/07/22 methylphenidate HCl 10 mg tablet 10 mg PO QAM #28 tabs 02/28/22 03/07/22 (Ritalin) methylphenidate HCl 5 mg tablet mg 03/07/22 Previous Rx's Medication Instructions Recorded methylphenidate HCl 5 mg tablet 5 mg PO DAILY #30 tabs 03/14/21 (Ritalin) levetiracetam 500 mg tablet 500 mg PO BID #60 tabs 10/06/21 (Keppra) olanzapine 5 mg tablet 5 mg PO DAILY #30 tabs 10/06/21 sertraline 100 mg tablet 150 mg PO DAILY #135 tabs 10/08/21 levetiracetam 500 mg tablet 500 mg PO BID #180 tabs 11/13/21 (Keppra) sertraline 100 mg tablet 200 mg PO DAILY #180 tabs 11/19/21 olanzapine 5 mg tablet 5 mg PO DAILY #90 tab-caps 12/07/21 methylphenidate HCl 10 mg tablet 10 mg PO QAM #28 tabs 02/28/22 (Ritalin) Allergies Allergy/AdvReac Type Severity Reaction Status Date / Time No Known Allergies Allergy Unverified 10/06/21 15:06 General SUNDEEP: 2 Review of Systems Narrative: 01/10 Review of Systems completed and is negative except as stated above in HPI (Systems reviewed: Const, Eyes, ENT, Resp, CV, GI, , MSK, Skin, Neuro) PFSH All Active Problems History of suicidal ideation (Acute) Medical History Depression Hypertension Seizure Traumatic brain injury Surgical History Hx of laparoscopic gastric banding Family History Mother Dementia Depression Neoplasm SKIN Father Essential hypertension Heart disease Sister Essential hypertension Dementia Hyperlipidemia Neoplasm SKIN Sister No problems noted. Brother No problems noted. Brother Depression Grandfather Neoplasm LUNG Grandfather No problems noted. Grandmother Dementia Neoplasm SKIN Grandmother Depression Son Depression Son No problems noted. 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 HEENT: NC/AT. Normal facial exam. Eyes: Normal conjunctiva and sclera. Neck: Supple. Trachea midline. No midline tenderness. Lungs: Tachypneic but in no distress, rhonchi bilateral bases. Cor: RRR without murmur/gallop. Good radial pulses. GI: Soft. NT/ND. No guarding or rebound. Neuro: A+O x 3. Normal speech. Slow gait, mild confusion. Cranial nerves II - XII grossly intact. No gross motor or sensory deficit. Ext: No C/C/E. Skin: Warm and dry without rash.
--- NOTE | 2022-03-07 15:30 | DI.RAD_ITS ---
Exam(s) XR PORTABLE CHEST AP EXAM: XR PORTABLE CHEST AP CLINICAL HISTORY: seizure TECHNIQUE: 2D digital imaging was performed of the chest. One image was obtained. An AP view was ob tained. COMPARISON: CR,XR XR PORTABLE CHEST AP from 08/12/2021 FINDINGS: MEDIASTINUM: Normal. HEART: Normal. PULMONARY VASCULATURE: Normal. LUNGS: Chronic interstitial disease is noted. No focal consolidating infiltrate is present. PLEURAL SPACE: No pleural effusion or pneumothorax. BONE:Within normal limits for the patient's age. OTHER FINDINGS:Normal. IMPRESSION: No acute pulmonary findings. DATA REPOSITORY: RADIATION DOSE DELIVERED:
[2022-03-07 15:56] LABS: Abs Immature Grans 0.14 10^3/uL (0.0-0.06); Absolute Eosinophil Count 0.12 10^3/uL (0.0-0.7); Absolute Lymphocyte Count 2.23 10^3/uL (1.2-3.4); Absolute Monocyte Count 0.54 10^3/uL (0.1-0.8); Basophils % 0.4; Eosinophils % 0.9; HCT 43.5 % (40.0-50.0); Lymphocytes % 16.1; MCH 30.9 pg (27.0-33.0); MCHC 34.5 % (32.0-36.0); MCV 90 fL (80-95); MPV 9.7 fL (8.0-11.0); Monocytes % 3.9; Neutrophils % 77.7; Platelet Count 305 10^3/uL (130-400); RBC 4.86 10^6/uL (4.36-5.78); RDW 13.4 % (11.8-14.1); RDW-SD 44.3 fL; WBC 13.88 10^3/uL (4.4-10.8)
[2022-03-07 15:57] LABS: Absolute Basophil Count 0.06 10^3/uL (0.0-0.2); Absolute Neutrophil Count 10.78 10^3/uL (1.2-6.7)
[2022-03-07 16:08] LABS: ALT 36 U/L (16-63); AST 35 U/L (15-37); Albumin 4.1 g/dL (3.4-5.0); Alkaline Phosphatase 102 U/L (46-116); Anion Gap 11.7 mmol/L (3-11); BUN 23 mg/dL (7-18); Bilirubin, Total 0.4 mg/dL (0.2-1.0); CO2 26.3 mmol/L (21.0-32.0); CREATININE 1.6 mg/dL (0.70-1.30); Calcium 10.2 mg/dL (8.5-10.1); Chloride 101 mmol/L (98-107); Estimated GFR 45.78 (mL/min/1.73m2); Glucose 133 mg/dL (74-106); Magnesium 2.3 mg/dL (1.8-2.4); Potassium 3.6 mmol/L (3.5-5.1); Sodium 139 mmol/L (136-145); Total Protein 9.3 g/dL (6.4-8.2)
[2022-03-07 16:23] LABS: Lab Add On Test DONE
[2022-03-07 16:42] LABS: COVID-19 PCR Negative (Negative); Influenza A PCR Negative (Negative); Influenza B PCR Negative (Negative); RSV PCR Negative (Negative)
[2022-03-07 16:45] LABS: Source Nasopharynx
--- NOTE | 2022-03-07 17:00 | DI.CT_ITS ---
Exam(s) CT CHEST PE CTA EXAM: CT CHEST PE CTA CLINICAL HISTORY: hypoxic with clear CXR. TECHNIQUE: Imaging Protocol: Axial CT angiography was performed with multi-slice acquisition and mu lti-planar and/or 3D reconstructions. CONTRAST MATERIAL: Intravenous: Omnipaque 350 contrast volume:100 mL COMPARISON: CT ABD/PELVIS WO W CONTRAST from 03/02/2017 CR,XR XR PORTABLE CHEST AP from 08/12/2021 FINDINGS: The examination is limited due to patient motion artifact. Tracheobronchial tree: Patent where visualized. Pulmonary parenchyma: No consolidation or dominant measurable mass. Dependent atelectasis is seen in the lung bases. Pulmonary Arteries: There is poor evaluation of the segmental and subsegmental pulmonary arteries due to significant patient motion artifact. No large central pulmonary embolus is present. Mediastinum and Ib[place]: No dominant adenopathy or fluid collection. The esophagus is unremarkable. Th e patient has had a lap band procedure. Visualized thyroid gland: Unremarkable. Pleura: No effusion or pneumothorax. Heart: The heart is not dilated. Mild coronary artery calcification is present. No pericardial effus ion. There is no evidence of right heart strain. Aorta: Thoracic aorta non-dilated. No evidence of dissection. There is mild atherosclerosis present. Upper abdomen: Unremarkable. Soft tissues: Unremarkable. Bones: Within normal limits for the patient's age.Mild T11 and T12 chronic compression deformities. IMPRESSION: 1. The examination is suboptimal for evaluation of segmental or subsegmental pulmonary emboli seconda ry to patient motion artifact. No large main central pulmonary embolus is seen. A repeat CT scan of the chest should be considered for further evaluation. 2. No pericardial effusion or evidence of right heart strain. 3. No focal consolidating infiltrates are seen. RADIATION DOSE DELIVERED: 449.18mGy.cm Total DLP DATA REPOSITORY: All CT scans at this facility are submitted to the National Radiology Data Registry (NRDR) Dose Index Registry (DIR) with the [employer] ([employer]). RADIATION OPTIMIZATION: All CT scans at this facility use at least one of these dose optimization te chniques: automated exposure control; mA and/or kV adjustment per patient size (includes targeted exa ms where dose is matched to clinical indication); or iterative reconstruction.
[2022-03-07] MEDS: levETIRAcetam 1,000 MG in Normal Saline 100 ML 400 MG IVPB (17:03)
[2022-03-07 17:08] LABS: D-Dimer 564 ng/mlFEU (<500)
[2022-03-07] MEDS: Normal Saline 1,000 ML 1000 ML IV (17:30)
[2022-03-07] MEDS: Normal Saline - Diluent 50 ML VIAL IV (18:09)
[2022-03-07] MEDS: Omnipaque 350 MG/ML 100 ML BTL IJ (18:11)
--- NOTE | 2022-03-07 18:46 | DI.VRAD_ITS ---
Addendum created by Douglas Lawson MD on 03/07/2022 6:56:49 PM EST: THIS REPORT CONTAINS FINDINGS THAT MAY BE CRITICAL TO PATIENT CARE. The findings were verbally communicated via telephone conference with SAHRA ARMSTRONG at 6:56 PM EST on 03/07/2022. The findings were acknowledged and understood. Initial report created on 03/07/2022 6:46:26 PM EST: PROCEDURE INFORMATION: Exam: CTA Chest With Contrast Exam date and time: 03/07/2022 5:56 PM Age: 71 years old Clinical indication: Other: Hypoxic with clear cxr TECHNIQUE: Imaging protocol: Computed tomographic angiography of the chest with contrast. 3D rendering (Not supervised by radiologist): MIP and/or 3D reconstructed images were created by the technologist. Contrast material: 350; Contrast volume: 100 ml; Contrast route: INTRAVENOUS (IV); COMPARISON: CR XR PORTABLE CHEST AP 03/07/2022 3:41 PM FINDINGS: Pulmonary arteries: No right or left main or lobar pulmonary arterial emboli are detected. Focal hypodensity seen in the region of the right lower lobar artery is suspicious for possible pulmonary embolism (see image 28, series 4 and image 54, series 7) although motion artifact produces significant obscuration of anatomic detail and other segmental or subsegmental pulmonary emboli cannot be excluded, particularly at the lung bases. Aorta: Unremarkable. No aortic aneurysm. No aortic dissection. Lungs: A reticular pattern of increased interstitial density is most prominent at the periphery of the mid to lower lung zones with no discrete parenchymal mass or consolidation detected. Pleural spaces: No pneumothorax or pleural effusion seen. Heart: Heart size is normal and there is no evidence of pericardial effusion or right heart strain. RV/LV ratio is estimated at 0.89. Lymph nodes: No mediastinal or hilar mass or adenopathy detected. Bones/joints: Mild compression deformities involving the vertebral bodies of T11 and T12 appear chronic with no acute osseous lesions detected at thoracic levels. Soft tissues: Unremarkable. IMPRESSION: 1. No right or left main or lobar pulmonary arterial emboli are detected. Focal hypodensity seen in the region of the right lower lobar artery is suspicious for possible pulmonary embolism (see image 28, series 4 and image 54, series 7) although motion artifact produces significant obscuration of anatomic detail and other segmental or subsegmental pulmonary emboli cannot be excluded, particularly at the lung bases. 2. Heart size is normal and there is no evidence of pericardial effusion or right heart strain. 3. A reticular pattern of increased interstitial density seen most prominently at the periphery of the mid to lower lung zones may be chronic and no discrete parenchymal mass or consolidation is detected. Dictated and Authenticated by: Douglas Lawson MD. Ordering:SANCHO Guan MD
[2022-03-07 19:52] LABS: Bilirubin Negative (Negative); Blood Trace-intact (Negative); Clarity Clear (Clear); Glucose Negative (Negative); Ketones Negative (Negative); Leukocyte Esterase Negative (Negative); Nitrite Negative (Negative); Specific Gravity 1.015 (1.005-1.025); Urobilinogen 0.2 EU/dL (Up TO 0.2)
[2022-03-07 20:02] LABS: Bacteria Negative HPF (Negative); C & S Indicated? No; Casts Negative LPF (Negative); Crystals Negative HPF (Negative); Epithelial Cells Rare HPF (Negative); Mucus Negative (Negative); RBC 0-2 HPF (0-2); WBC 0-2 HPF (0-5)
[2022-03-07] MEDS: Enoxaparin 80 MG/0.8 ML SYR SC (21:01)
[2022-03-08] VITALS (85 sets, daily range): BP systolic 78–116; BP diastolic 34–78; PULSE 74–173; RESP 12–44; O2SAT 86–98
[2022-03-08 00:28] LABS: ESR 17 mm/hr (0-20)
[2022-03-08 00:44] LABS: C-Reactive Protein 1.82 mg/dL (0.0-0.3)
[2022-03-08 01:03] LABS: Procalcitonin 0.2 ng/mL
--- NOTE | 2022-03-08 02:03 | ED.PROG_ITS ---
Date of service: 03/08/22 Time of Service: 02:03 Medical Decision Making Patient was received in signout by Dr. Mallory. At time of signout we were awaiting repeat CT scan in the morning. Patient had had a seizure, CTA was performed because the patient was mildly hypoxic in the high 80s. CTA shows notable motion artifact with the potential for possible pulmonary embolism in the right lower lobe lobar artery. Patient was given Lovenox at that time and the patient's blood pressure also declined slightly and was given a fluid bolus. Patient was then signed out. Bedside ultrasound was performed. Right ventricle does not appear overly dilated, no bulging of the interventricular septum into the left ventricle. IVC demonstrates some mild to moderate collapse, and internal jugular is demonstrate easy collapse. Patient was given 2 L of normal saline total, and just now at 2 in the morning did he have a urinary movement which was notably dark in color. Blood pressure remains persistently around 80-90 systolic, heart rate has improved and is now in the low 100s. Clinically the patient states that he feels well and does not feel bad. He does not feel lightheaded. He denies any current chest pain. Patient does not appear to be in a clinical state of shock as there are no mental status changes, his tachycardia is improving, and he otherwise feels relatively well. Review of the patient's blood pressures in the past demonstrate that he usually runs on the low side in the low 100s. I do not feel that pressors are clinically indicated at this time, additionally I feel the risk of a central line being placed as he has now been anticoagulated does not outweigh the benefits. However we will continue to monitor very closely to make sure there is no continued decline. Will hold the patient here tonight. 7:54 AM After 3 total liters of fluid the patient is feeling well. Heart rate has gone down to the 70s, blood pressure has improved and is in the 90s. Patient remains comfortable, no mental status changes, repeat CTA was ordered, patient will go for this. Patient will be signed out to my colleague Dr. Christian Delvalle for follow- up on imaging and still potential admission with holding here in the ED. Sign Out Yes Sign Out Sign Out Data: Sign Out Comment: Observe overnight and continue fluid hydration with plan for repeat CTA in the morning. Last updated by Roge Mallory MD at 03/07/22 23:30 Discharge Plan Discharge Details Chief Complaint: Seizure Primary Care Provider: [facility] ED Provider: Delmer Jasso Home Meds and New Rx's Prescriptions: No Action multivitamin Tablet 1 tab PO DAILY sertraline 100 mg tablet 150 mg PO DAILY Qty: 135 1RF sertraline 100 mg tablet 200 mg PO DAILY Qty: 180 3RF methylphenidate HCl [Ritalin] 5 mg tablet 5 mg PO DAILY MDD 1 tab Qty: 30 0RF levetiracetam [Keppra] 500 mg tablet 500 mg PO BID Qty: 180 3RF olanzapine 5 mg tablet 5 mg PO DAILY Qty: 90 4RF methylphenidate HCl [Ritalin] 10 mg tablet 10 mg PO QAM MDD 1 tab Qty: 28 0RF cholecalciferol (vitamin D3) [Vitamin D3] 125 mcg (5,000 unit) Tablet 5,000 unit PO DAILY vitamin E 400 unit Tablet 400 unit PO DAILY levetiracetam [Keppra] 500 mg tablet 500 mg PO BID Qty: 60 0RF olanzapine 5 mg tablet 5 mg PO DAILY Qty: 30 0RF methylphenidate HCl 5 mg tablet Label Comments: TAKE ONE TABLET BY MOUTH EVERY DAY
[2022-03-08] MEDS: Normal Saline 500 ML IV (03:45)
--- NOTE | 2022-03-08 07:15 | DI.CT_ITS ---
Exam(s) CT CHEST PE CTA EXAM: CT CHEST PE CTA CLINICAL HISTORY: concern for PE, notable motion artifact on last CT. TECHNIQUE: Imaging Protocol: Axial CT angiography was performed with multi-slice acquisition and mu lti-planar and/or 3D reconstructions. CONTRAST MATERIAL: Intravenous: Omnipaque 350 contrast volume:100 mL COMPARISON: CT CT CHEST PE CTA from 03/07/2022 FINDINGS: Tracheobronchial tree: Patent where visualized. Pulmonary parenchyma: No consolidation or dominant measurable mass. Chronic interstitial changes are seen in the lungs. Been atelectatic changes are present. Pulmonary Arteries: No evidence of filling defect to suggest pulmonary emboli. Mediastinum and [place]: No dominant mediastinal adenopathy is present. There is diffuse thickening of the esophagus. The patient has had a lap band procedure. Visualized thyroid gland: Unremarkable. Pleura: No effusion or pneumothorax. Heart: The heart is not dilated. Mild coronary artery calcification is present. No pericardial effus ion. Aorta: Thoracic aorta non-dilated. No evidence of dissection. There is mild atherosclerosis. Upper abdomen: Unremarkable. Soft tissues: Unremarkable. Bones: Within normal limits for the patient's age.Old healed rib fractures are seen on the right. Ol d T11 and T12 compression fracture deformities. IMPRESSION: 1. No evidence of pulmonary embolism, thoracic aortic dissection or aneurysm. 2. No acute pulmonary process. RADIATION DOSE DELIVERED: 632.02mGy.cm Total DLP DATA REPOSITORY: All CT scans at this facility are submitted to the National Radiology Data Registry (NRDR) Dose Index Registry (DIR) with the [employer] (A[employer]). RADIATION OPTIMIZATION: All CT scans at this facility use at least one of these dose optimization te chniques: automated exposure control; mA and/or kV adjustment per patient size (includes targeted exa ms where dose is matched to clinical indication); or iterative reconstruction.
[2022-03-08] MEDS: Omnipaque 350 MG/ML 100 ML BTL IJ (08:43)
[2022-03-08] MEDS: Methylphenidate 10 MG TAB PO (08:45)
[2022-03-08] MEDS: Enoxaparin 80 MG/0.8 ML SYR SC (08:45)
[2022-03-08] MEDS: levETIRAcetam 500 MG TAB PO (08:45)
[2022-03-08] MEDS: Sertraline 100 MG TAB 200 MG PO (08:45)
--- NOTE | 2022-03-08 08:55 | DI.VRAD_ITS ---
PROCEDURE INFORMATION: Exam: CTA Chest With Contrast Exam date and time: 03/08/2022 8:35 AM Age: 71 years old Clinical indication: Abnormal findings; Abnormal radiologic exam of lung or chest; Patient HX: Motion on pe study done 03/07 TECHNIQUE: Imaging protocol: Computed tomographic angiography of the chest with contrast. 3D rendering (Not supervised by radiologist): MIP and/or 3D reconstructed images were created by the technologist. COMPARISON: CT CHEST PE CTA 03/07/2022 5:56 PM FINDINGS: Tubes, catheters and devices: A gastric lap band is noted. Pulmonary arteries: Normal. No pulmonary emboli. Aorta: Unremarkable. No aortic aneurysm. No aortic dissection. Lungs: Mild pulmonary fibrosis. No mass or consolidation or evidence of pneumonia. Scattered calcified granulomas. 2 mm noncalcified nodule in the right upper lobe, stable. Pleural spaces: Unremarkable. No pneumothorax. No pleural effusion. Heart: Normal heart size. There is coronary artery calcification. Lymph nodes: Unremarkable. No enlarged lymph nodes. Gallbladder and bile ducts: The gallbladder demonstrates layering density consistent with noncalcified stones or sludge. Bones/joints: Old superior endplate compression fractures at T11 and T12, stable from prior exam. No acute fracture. Soft tissues: Unremarkable. IMPRESSION: No acute pulmonary embolism or other acute findings.Additional findings as described. Dictated and Authenticated by: Feli Barragan MD. Ordering:RAISA Dowell MD
--- NOTE | 2022-03-08 09:14 | W.EDPROG ---
Date of service: 03/08/22 Time of Service: 09:15 Medical Decision Making Pt's repeat cta shows no acute findings. He is 98% on room air, nursing states he was asleep when his oxygen saturation decreased to the high 80's but when he awoke quickly became normal, suspect he could have sleep apnea. He currently has no complaints, is eating breakfast in no distress, caox4 without focal deficits. He declines being admitted for observation and given his stable vitals, no complaints and reassuring exam do not feel he requires hospitalization unless he fails ambulation trial. pt ambulated well and had no symptoms, no lightheadedness, no chest pain or dyspnea. His bp is 114/72 and o2 sat 98% on room air, hr 80. He is stable for d/c, advised to f/u with his pcp, return precautions given Imaging Data Radiologic Study: Attestation: I personally reviewed and interpreted this imaging study as follows: Imaging: CT Scan Radiologist's impression: no acute findings Lab Data Lab results reviewed: Yes I reviewed the patient's lab results. Sign Out No Sign Out Sign Out Data: Sign Out Comment: Observe overnight and continue fluid hydration with plan for repeat CTA in the morning. Last updated by Roge Mallory MD at 03/07/22 23:30 Sign Out Comment: Follow-up on repeat CT scan for pulmonary embolism confirmation. Last updated by Delmer Jasso DO at 03/08/22 07:56 Discharge Plan Disposition Patient Disposition: Home Condition: Stable Discharge Details Clinical Impression: Seizure Primary Care Provider: [facility] ED Provider: Zbigniew Delvalle [place] Meds and New Rx's Prescriptions: Continued multivitamin Tablet 1 tab PO DAILY sertraline 100 mg tablet 150 mg PO DAILY Qty: 135 1RF levetiracetam [Keppra] 500 mg tablet 500 mg PO BID Qty: 180 3RF olanzapine 5 mg tablet 5 mg PO DAILY Qty: 90 4RF methylphenidate HCl [Ritalin] 10 mg tablet 10 mg PO QAM MDD 1 tab Qty: 28 0RF cholecalciferol (vitamin D3) [Vitamin D3] 125 mcg (5,000 unit) Tablet 5,000 unit PO DAILY vitamin E 400 unit Tablet 400 unit PO DAILY levetiracetam [Keppra] 500 mg tablet 500 mg PO BID Qty: 60 0RF Discharge Instructions Instructions: Recurrent Seizures in Adults (ED) Additional Instructions: follow up with your primary care provider within 1 week if you feel more ill, have difficulty breathing, recurrent seizures or severe headache return to the emergency department do not drive or swim/bathe by yourself until you are cleared to do so by your neurologist or primary care provider.
[2022-03-11 15:10] LABS: Levetiracetam <2.0 mcg/mL
== END 2022-03-08 10:40 | disposition home or self-care (01) ==
PROVIDERS: Emergency Medicine; Student in an Organized Health Care Education/Training Program; Emergency Provider Emergency Medicine; PCP Family Medicine
DX: R56.9 Unspecified convulsions (principal); I10 Essential (primary) hypertension; Z20.822 Contact with and (suspected) exposure to COVID-19
CPT/HCPCS: 36415; 71275; 80053; 84145; 85652; 87040; 87637; 96361; 96365; 96372; 99285; 71045; 80177; 81003; 81015; 83735; 85025; 85379; 86140; J1650; J1953; J3490

== ENCOUNTER 2023-11-16 04:18 | Outpatient (CLI) | payer MEDICARE, SELFPAY ==
[2023-11-16 15:39] LABS: HCT 45.2 % (40.0-50.0); HGB 15.1 g/dL (13.5-17.5); MCH 30.6 pg (27.0-33.0); MCHC 33.4 % (32.0-36.0); MCV 92 fL (80-95); MPV 9.4 fL (8.0-11.0); Platelet Count 274 10^3/uL (130-400); RBC 4.93 10^6/uL (4.36-5.78); RDW-SD 47.2 fL; WBC 9.04 10^3/uL (4.4-10.8)
[2023-11-16 15:52] LABS: Hemoglobin A1C 5.8 % (<5.7)
[2023-11-16 16:16] LABS: Anion Gap 8.7 mmol/L (3-11); BUN 15 mg/dL (7-18); CO2 28.3 mmol/L (21.0-32.0); CREATININE 1.5 mg/dL (0.70-1.30); Chloride 105 mmol/L (98-107); Estimated GFR 48.85 (mL/min/1.73m2); Glucose 91 mg/dL (74-106); Sodium 142 mmol/L (136-145)
[2023-11-18 15:11] LABS: Levetiracetam 22.6 mcg/mL
== END 2023-11-16 04:19 | disposition home or self-care (01) ==
LOC: LBO 04:19
PROVIDERS: PCP Family Medicine; Visit Provider Family Medicine
DX: R53.83 Other fatigue (principal); R56.9 Unspecified convulsions; E11.51 Type 2 diabetes mellitus with diabetic peripheral angiopathy without gangrene; I70.209 Unspecified atherosclerosis of native arteries of extremities, unspecified extremity; E87.1 Hypo-osmolality and hyponatremia
CPT/HCPCS: 36415; 80048; 85027; 80177; 83036

== ENCOUNTER 2024-11-18 18:41 | Outpatient (REF) | payer MEDICARE, SELFPAY ==
[2024-11-18 16:26] LABS: Hemoglobin A1C 5.7 % (<5.7)
[2024-11-18 16:35] LABS: Anion Gap 6.3 mmol/L (3-11); BUN 22 mg/dL (7-18); CO2 28.7 mmol/L (21.0-32.0); Calcium 9.9 mg/dL (8.5-10.1); Chloride 103 mmol/L (98-107); Estimated GFR 57.65 (mL/min/1.73m2); Glucose 146 mg/dL (74-106); Potassium 4.4 mmol/L (3.5-5.1); Sodium 138 mmol/L (136-145)
== END 2024-11-18 18:42 | disposition home or self-care (01) ==
LOC: LBN 18:41
PROVIDERS: PCP Family Medicine; Visit Provider Family Medicine
DX: E87.1 Hypo-osmolality and hyponatremia (principal); R73.9 Hyperglycemia, unspecified; R56.9 Unspecified convulsions
CPT/HCPCS: 80048; 80177; 83036